=== PATIENT | female | born 1950 | race Caucasian/White ===

== ENCOUNTER 2023-06-30 18:54 | Emergency (ER) | payer MEDICARE, BC, SELFPAY ==
[2023-06-30 18:58] VITALS: BP 124/84; PULSE 76; RESP 14; TEMP 36.3; O2SAT 96; BMI 41.2
--- NOTE | 2023-06-30 20:08 | ED.GENADULT ---
HPI - General Adult General Chief complaint: Unspecified Complaint, Adult Stated complaint: Breathing heavy, shaking Time Seen by Provider: 06/30/23 20:02 History of Present Illness HPI narrative: This 73-year-old female comes in reporting shaking symptoms this started a bit prior to arrival. She states that she had this once before when she was positive for COVID. She did test at home for COVID and it was a negative results. She does not report any cough or shortness of breath. She has some generalized aches and pains. She feels that the shaking symptoms have improved now. She arrives with normal vital signs. She does not have a fever. She does not report any other signs of infection. Related Data Home Medications Medication Instructions Recorded Confirmed apixaban 5 mg tablet (Eliquis) 5 mg PO BID 06/30/23 06/30/23 atorvastatin 80 mg tablet 80 mg PO DAILY 06/30/23 06/30/23 ezetimibe 10 mg tablet 10 mg PO DAILY 06/30/23 06/30/23 gabapentin 300 mg capsule 300 mg PO TID 06/30/23 06/30/23 metoprolol succinate 25 mg 12.5 mg PO DAILY 06/30/23 06/30/23 tablet,extended release 24 hr Allergies Allergy/AdvReac Type Severity Reaction Status Date / Time bacitracin AdvReac Unknown Rash Verified 06/30/23 19:02 [From Neosporin ([id number])] neomycin AdvReac Unknown Rash Verified 06/30/23 19:02 [From Neosporin ([id number])] polymyxin B AdvReac Unknown Rash Verified 06/30/23 19:02 [From Neosporin ([id number])] Coban Allergy Unknown Rash Uncoded 06/30/23 19:02 Review of Systems Status of ROS: Reports: 10 or more systems reviewed and unremarkable except as noted in History and below Narrative: Constitutional: No fevers, no weight gain or loss. Eyes: No discharge. No vision changes. HENT: No congestion, no sore throat, no ear pain. Cardiovascular: No chest pain, no palpitations. Respiratory: No shortness of breath, no wheezes, no cough. Gastrointestinal: No abdominal pain, no vomiting, no diarrhea. Genitourinary: No dysuria, no hematuria. Musculoskeletal: Normal range of motion. Skin: No rashes, no pruritis. Neurological: No dizziness, weakness, sensory change, speech change. She reports shaking symptoms that have now settled down. Endo/Heme/Allergies: No bruising or bleeding. No polydipsia. Pysch: no suicidality, no anxiety, no insomnia. All other systems reviewed and are negative. [facility] Social History Smoking Status: Never smoker Do you use any of these nicotine containing products: None How often do you have a drink containing alcohol: monthly or less How often do you have six or more drinks on one occasion: Never AUDIT-C Alcohol total score: 1 Non-prescribed substance use: denies use Exam Narrative: Exam Narrative: Constitutional: Well-developed, well-nourished, no acute distress. HEENT: Normocephalic, atraumatic. Neck: Normal range of motion. Nontender. Supple. Heart: Regular. No murmurs. Normal rate. Intact distal pulses. Lungs: Clear to auscultation. No chest discomfort. No wheezes, rhonchi, or rales. Abdomen: Normal bowel sounds. Nontender. No rebound tenderness. Genitalia: Deferred. Back: No midline tenderness. Normal range of motion. Extremities: Normal range of motion. No injury. Skin: Intact. No rash. Warm. No erythema or pallor. Neurologic: No altered sensation. No weakness. Alert and oriented. Psychiatric: No suicidality. No anxiety or depression. No insomnia. Nursing notes and vitals signs are reviewed. Const: Vital Signs, click to edit/add: Vital Signs - 24 hr 06/30/23 18:58 06/30/23 20:14 Temperature 97.3 F L Pulse Rate [Pulse Oximeter] 76 83 Respiratory Rate 14 18 Blood Pressure [Ri t Upper Arm] 124/84 142/83 H Pulse Oximetry 96 98 Oxygen Delivery Me thod Room Air Room Air Course Vital Signs Vital signs: Initial Vital Signs Temperature 97.3 F L 06/30/23 18:58 Temperature Source Temporal Artery Scan 06/30/23 18:58 Pulse Rate 76 06/30/23 18:58 Pulse Rhythm Regular 06/30/23 18:58 Respiratory Rate 14 06/30/23 18:58 Blood Pressure 124/84 06/30/23 18:58 Blood Pressure Mean 97 06/30/23 18:58 Blood Pressure Position Sitting 06/30/23 18:58 Pulse Oximetry 96 06/30/23 18:58 Oxygen Delivery Method Room Air 06/30/23 18:58 Vital Signs Temperature 97.3 F L 06/30/23 18:58 Pulse Rate 76 06/30/23 18:58 Respiratory Rate 14 06/30/23 18:58 Blood Pressure 124/84 06/30/23 18:58 Pulse Oximetry 96 06/30/23 18:58 Oxygen Delivery Method Room Air 06/30/23 18:58 Temperature 97.3 F L 06/30/23 18:58 Pulse Rate 83 06/30/23 20:14 Respiratory Rate 18 06/30/23 20:14 Blood Pressure 142/83 H 06/30/23 20:14 Pulse Oximetry 98 06/30/23 20:14 Oxygen Delivery Method Room Air 06/30/23 20:14 Medical Decision Making MDM Narrative Medical decision making narrative: This patient comes in reporting generalized shaking episode this started prior to arrival. She arrives with normal vital signs. At the time of my visit her shaking has almost completely resolved. She reports some generalized aches and pains but has no other symptoms. The patient did receive an oral dose of Ativan 0.5 mg. Labs are acquire and they returned with reassuring results. The patient continues to feel well and is okay to be discharged home. She did receive a prescription for a few more tablets of Ativan to be used as needed for recurrent circumstances if they happen. Lab Data Labs: Lab Results 06/30/23 Range/Units 20:20 WBC 7.49 (4.50-11.00) K/uL RBC 3.95 L (4.00-5.20) m/uL Hgb 12.2 (12.0-16.0) gm/dL Hct 37.3 (33.0-51.0) % MCV 94 (80-100) fL MCH 31 (26-34) pg MCHC 33 (32-36) gm/dL RDW Coeff of Bello 13.6 (11.5-15.5) % Plt Count 186 (140-440) K/uL Neut % (Auto) 77.1 H (42.0-72.0) % Lymph % (Auto) 13.5 L (20-44) % Norman % (Auto) 8.7 (0.0-11.0) % Eos % (Auto) 0.5 (0.0-7.0) % Baso % (Auto) 0.1 (0.0-3.0) % Neut # (Auto) 5.80 (1.7-7.0) K/uL Lymph # (Auto) 1.00 (0.90-2.90) K/uL Norman # (Auto) 0.70 (0.00-0.90) K/UL Eos # (Auto) 0.04 (0.00-0.50) K/uL Baso # (Auto) 0.01 (0.00-0.30) K/uL Abs Immat Gran (auto) 0.01 (0.00-0.30) K/uL Imm/Tot Granulo (auto) 0.1 % Sodium 137 (135-149) mmol/L Potassium 4.1 (3.6-5.1) mmol/L Chloride 101 (96-114) mmol/L Carbon Dioxide 27 (20-32) mmol/L Anion Gap 9 (7-15) mEq/L BUN 17 (7-30) mg/dL Creatinine 0.6 (0.5-1.5) mg/dL Estimated Creat Clear 38.94 Estimated GFR 96 ml/min Glucose 88 (60-115) mg/dL Calcium 8.9 (8.4-10.6) mg/dL Discharge Plan Discharge Clinical Impression: Tremors of nervous system Patient Disposition: Home, Self-Care Condition: Improved Additional Instructions: continue current plans. Take medication as needed and directed. Follow up with MD or return if worsening. Prescriptions: No Action atorvastatin 80 mg tablet 80 mg PO DAILY ezetimibe 10 mg tablet 10 mg PO DAILY metoprolol succinate 25 mg tablet extended release 24 hr 12.5 mg PO DAILY gabapentin 300 mg capsule 300 mg PO TID Eliquis 5 mg tablet 5 mg PO BID Follow Up/Referrals: Provider,Not a Local [Primary Care Provider] - Stand Alone Forms: [employer] Info Instructions
[2023-06-30] MEDS: LORazepam 0.5 MG TABLET PO (20:11)
[2023-06-30 20:14] VITALS: BP 142/83; PULSE 83; RESP 18; O2SAT 98
[2023-06-30 20:26] LABS: Basophils Absolute Auto 0.01 K/uL (0.00-0.30); Basophils Percent Auto 0.1 % (0.0-3.0); Eosinophils Absolute Auto 0.04 K/uL (0.00-0.50); Eosinophils Percent Auto 0.5 % (0.0-7.0); Hematocrit 37.3 % (33.0-51.0); Hemoglobin* 12.2 gm/dL (12.0-16.0); Immature Granulocytes Abs Auto 0.01 K/uL (0.00-0.30); Immature Granulocytes Pct Auto 0.1 %; Lymphocytes Percent Auto 13.5 % (20-44); Mean Corpuscular HGB Conc 33 gm/dL (32-36); Mean Corpuscular Hemoglobin 31 pg (26-34); Mean Corpuscular Volume 94 fL (80-100); Monocytes Percent Auto 8.7 % (0.0-11.0); Neutrophils Percent Auto 77.1 % (42.0-72.0); Platelet Count* 186 K/uL (140-440); RDW Coefficient of Variation % 13.6 % (11.5-15.5); Red Blood Count 3.95 m/uL (4.00-5.20); White Blood Count* 7.49 K/uL (4.50-11.00)
[2023-06-30 20:40] LABS: Chloride* 101 mmol/L (96-114); Potassium* 4.1 mmol/L (3.6-5.1); Sodium* 137 mmol/L (135-149)
[2023-06-30 20:42] LABS: Creatinine* 0.6 mg/dL (0.5-1.5); Est. Creatinine Clearance* 38.94; Estimated Glomerular Filt Rate 96 ml/min
[2023-06-30 20:43] LABS: Anion Gap 9 mEq/L (7-15); Blood Urea Nitrogen* 17 mg/dL (7-30); Calcium* 8.9 mg/dL (8.4-10.6); Carbon Dioxide* 27 mmol/L (20-32); Glucose* 88 mg/dL (60-115)
[2023-06-30 20:50] LABS: Slide Review Reflex No
== END 2023-06-30 21:13 | disposition home or self-care (01) ==
PROVIDERS: Emergency Provider Emergency Medicine Emergency Medical Services
DX: R06.82 Tachypnea, not elsewhere classified (principal); R25.1 Tremor, unspecified
CPT/HCPCS: 36415; 80048; 85025; 99283; 99284; A9270